=== PATIENT | male | born 1985 | race Two or more races ===

== ENCOUNTER 2020-11-14 15:01 | Outpatient (CLI) | payer OTHER | END 2020-11-14 17:10 | disposition home or self-care (01) | LOC: OFIC 805 15:01 | PROVIDERS: ATTEND Otolaryngology | DX: R09.81 Nasal congestion (principal); H93.13 Tinnitus, bilateral; J34.2 Deviated nasal septum; H93.8X3 Other specified disorders of ear, bilateral; J34.3 Hypertrophy of nasal turbinates ==